=== PATIENT | male | born 1975 | race African-American/Black ===

== ENCOUNTER 2017-04-12 21:54 | Inpatient (IN) | payer MEDICARE, MEDICAID ==
[~2017-04-12] VITALS: Ht 182.9 cm; Wt 90.8 kg
[~2017-04-12 21:54] MED LIST: FOLI1 PO; RISP1 PO; THIA100T PO; WELL150T PO
[2017-04-12 22:03] VITALS: BP 135/86; PULSE 79; RESP 16; TEMP 98.2; O2SAT 99
--- NOTE | 2017-04-12 22:24 | PD ---
HPI Chief Complaint: Psychiatric Symptoms Time Seen by Provider: 22:10 Travel History International Travel<30 days: No Contact w/Intl Traveler<30days: No Traveled to known affect area: No History of Present Illness HPI 41-year-old black male presents to emergency department by EMS from [facility] for evaluation. According to EMS, the electromedical equipment repairer of the facility called 911 to have the patient evaluated. According to EMS the patient has been an inpatient there for some time. He has a history of schizophrenia. Over last day or so he has become acutely confused. Patient appears to be having visual hallucinations. He has been swatting at things that may not be there. Patient has had a history of substance abuse. There is no report of any recent trauma, recent illness, or medication changes. The patient here is reserved and only responds with one word answers. Patient keeps his eyes closed and does not assist with his care today. It is unclear whether the patient is just a very poor historian or is from altered mental status. PFSH Past Medical History Narrative Medical Schizophrenia, substance abuse, peptic ulcer disease, history of pneumonia. Bipolar Disorder: Yes Depression: Yes Diminished Hearing: Yes Genitourinary: No Musculoskeletal: No Neurologic: No Reproductive: No Respiratory: No Immunizations Current: Yes Pneumonia: Yes Schizophrenia: Yes Ulcer: Yes Past Surgical History Surgical History: No Previous Surgery Other Surgery: No Social History Alcohol Use: Yes Tobacco Use: Yes (1ppd) Substance Use: Yes ("EVERYTHING") Allergies-Medications (Allergen,Severity, Reaction): Coded Allergies: No Known Allergies (Unverified , 10/31/15) Reported Meds & Prescriptions Reported Meds & Active Scripts Active Risperdal (Risperidone) 1 Mg Tab 2 Mg PO BID 15 Days Wellbutrin-Sr (Bupropion HCl) 150 Mg Tabcr 150 Mg PO DAILY 15 Days Vitamin B1 (Thiamine HCl) 100 Mg Tab 100 Mg PO DAILY 15 Days Folate 1 Mg Tab (Folic Acid) 1 Mg Tab 1 Mg PO DAILY 15 Days Review of Systems ROS Limitations: Clinical Condition, Altered Mental Status, Poor Historian Physical Exam Narrative GENERAL: Well-nourished, well-developed patient. I see no evidence of trauma. SKIN: Warm and dry. No rashes. HEAD: Normocephalic and atraumatic. EYES: No scleral icterus. No injection or drainage. ENT: No nasal drainage noted. Mucous membranes pink. Airway patent. NECK: Supple, trachea midline. Moves head freely without obvious discomfort. No nuchal rigidity. CARDIOVASCULAR: Regular rate and rhythm without murmurs, gallops, or rubs. RESPIRATORY: Breath sounds equal bilaterally. No accessory muscle use. GASTROINTESTINAL: Abdomen soft, non-tender, nondistended. EXTREMITIES: No cyanosis or edema. BACK: Nontender without obvious deformity. No CVA tenderness. NEURO: Patient is alert and oriented to person. no sensorimotor deficits. Nonfocal. Normal speech. Data Data Last Documented VS Vital Signs Date Time Temp Pulse Resp B/P (MAP) Pulse Ox O2 Delivery O2 Flow Rate FiO2 04/12/17 22:03 98.2 79 16 135/86 (102) 99 Orders Orders Complete Blood Count With Diff (04/12/17 22:11) Comprehensive Metabolic Panel (04/12/17 22:11) C-Reactive Protein (Crp) (04/12/17 22:11) Ua Includes Microscopic (04/12/17 22:11) Ammonia (04/12/17 22:11) Thyroid Stimulating Hormone (04/12/17 22:11) Iv Access Insert/Monitor (04/12/17 22:11) Drug Screen, Random Urine (04/12/17 22:11) Alcohol (Ethanol) (04/12/17 22:11) Lactic Acid (04/12/17 22:11) Labs Laboratory Tests Test 04/12/17 22:30 White Blood Count 6.9 TH/MM3 Red Blood Count 5.43 MIL/MM3 Hemoglobin 14.5 GM/DL Hematocrit 43.4 % Mean Corpuscular Volume 80.0 FL Mean Corpuscular Hemoglobin 26.8 PG Mean Corpuscular Hemoglobin Concent 33.5 % Red Cell Distribution Width 13.8 % Platelet Count 220 TH/MM3 Mean Platelet Volume 7.9 FL Neutrophils (%) (Auto) 59.1 % Lymphocytes (%) (Auto) 25.6 % Monocytes (%) (Auto) 9.7 % Eosinophils (%) (Auto) 5.0 % Basophils (%) (Auto) 0.6 % Neutrophils # (Auto) 4.1 TH/MM3 Lymphocytes # (Auto) 1.8 TH/MM3 Monocytes # (Auto) 0.7 TH/MM3 Eosinophils # (Auto) 0.3 TH/MM3 Basophils # (Auto) 0.0 TH/MM3 CBC Comment DIFF FINAL Differential Comment Blood Urea Nitrogen 8 MG/DL Creatinine 1.15 MG/DL Random Glucose 89 MG/DL Total Protein 8.0 GM/DL Albumin 3.6 GM/DL Calcium Level 8.9 MG/DL Alkaline Phosphatase 70 U/L Aspartate Amino Transf (AST/SGOT) 25 U/L Alanine Aminotransferase (ALT/SGPT) 21 U/L Total Bilirubin 0.4 MG/DL Sodium Level 138 MEQ/L Potassium Level 3.6 MEQ/L Chloride Level 105 MEQ/L Carbon Dioxide Level 26.7 MEQ/L Anion Gap 6 MEQ/L Estimat Glomerular Filtration Rate 86 ML/MIN Lactic Acid Level 0.8 mmol/L Ammonia 23 MCMOL/L C-Reactive Protein 0.61 MG/DL Thyroid Stimulating Hormone 3rd Gen 0.606 uIU/ML Ethyl Alcohol Level LESS THAN 3 MG/DL MDM Medical Decision Making Medical Screen Exam Complete: Yes Emergency Medical Condition: Yes Medical Record Reviewed: Yes Interpretation(s) Laboratory Tests Test 04/12/17 22:30 White Blood Count 6.9 TH/MM3 Red Blood Count 5.43 MIL/MM3 Hemoglobin 14.5 GM/DL Hematocrit 43.4 % Mean Corpuscular Volume 80.0 FL Mean Corpuscular Hemoglobin 26.8 PG Mean Corpuscular Hemoglobin Concent 33.5 % Red Cell Distribution Width 13.8 % Platelet Count 220 TH/MM3 Mean Platelet Volume 7.9 FL Neutrophils (%) (Auto) 59.1 % Lymphocytes (%) (Auto) 25.6 % Monocytes (%) (Auto) 9.7 % Eosinophils (%) (Auto) 5.0 % Basophils (%) (Auto) 0.6 % Neutrophils # (Auto) 4.1 TH/MM3 Lymphocytes # (Auto) 1.8 TH/MM3 Monocytes # (Auto) 0.7 TH/MM3 Eosinophils # (Auto) 0.3 TH/MM3 Basophils # (Auto) 0.0 TH/MM3 CBC Comment DIFF FINAL Differential Comment Blood Urea Nitrogen 8 MG/DL Creatinine 1.15 MG/DL Random Glucose 89 MG/DL Total Protein 8.0 GM/DL Albumin 3.6 GM/DL Calcium Level 8.9 MG/DL Alkaline Phosphatase 70 U/L Aspartate Amino Transf (AST/SGOT) 25 U/L Alanine Aminotransferase (ALT/SGPT) 21 U/L Total Bilirubin 0.4 MG/DL Sodium Level 138 MEQ/L Potassium Level 3.6 MEQ/L Chloride Level 105 MEQ/L Carbon Dioxide Level 26.7 MEQ/L Anion Gap 6 MEQ/L Estimat Glomerular Filtration Rate 86 ML/MIN Lactic Acid Level 0.8 mmol/L Ammonia 23 MCMOL/L C-Reactive Protein 0.61 MG/DL Thyroid Stimulating Hormone 3rd Gen 0.606 uIU/ML Ethyl Alcohol Level LESS THAN 3 MG/DL Differential Diagnosis MDM: High Differential diagnoses: Schizophrenia, schizoaffective disorder, bipolar, anxiety, depression, adjustment reaction, mood disorder NOS, ODD, depressive disorder NOS, dementia, dementia with agitation, psychosis NOS, substance induced mood disorder, DMDD, Asperger syndrome, infection,electrolyte abnormality, malingering. Narrative Course Patient's placed on a monitor. IV access is obtained. Routine laboratory tests for analysis. Patient does respond but only answers in one word responses. Patient will be evaluated for possible infection versus supratentorial etiology. The patient's medical evaluation in the ER is unremarkable. I believe that this is more of a psychiatric problem as opposed to a organic process. The patient has been medically cleared and will be evaluated by the psych screener. Diagnosis Primary Impression: Medical clearance for psychiatric admission Condition: Stable Rupert Estrada Apr 12, 2017 22:24
[2017-04-12 22:51] LABS: AUTOMATED NEUTROPHIL # 4.1 TH/MM3 (1.8-7.7); BASOPHIL % 0.6 % (0.0-2.0); EOSINOPHIL # 0.3 TH/MM3 (0-0.4); HEMATOCRIT 43.4 % (39.0-51.0); HEMOGLOBIN 14.5 GM/DL (13.0-17.0); LYMPH % 25.6 % (9.0-44.0); LYMPHOCYTE # 1.8 TH/MM3 (1.0-4.8); MEAN CORPUSCULAR HEMOGLOBIN 26.8 PG (27.0-34.0); MEAN CORPUSCULAR HGB CONC 33.5 % (32.0-36.0); MEAN PLATELET VOLUME 7.9 FL (7.0-11.0); MONO % 9.7 % (0.0-8.0); MONOCYTE # 0.7 TH/MM3 (0-0.9); NEUT % 59.1 % (16.0-70.0); PLATELET COUNT 220 TH/MM3 (150-450); RED BLOOD COUNT 5.43 MIL/MM3 (4.50-5.90); RED CELL DISTRIBUTION WIDTH 13.8 % (11.6-17.2); WHITE BLOOD COUNT 6.9 TH/MM3 (4.0-11.0)
[2017-04-12 23:18] LABS: ALBUMIN 3.6 GM/DL (3.4-5.0); AST (GOT) 25 U/L (15-37); BICARBONATE 26.7 MEQ/L (21.0-32.0); BLOOD UREA NITROGEN 8 MG/DL (7-18); CALCIUM 8.9 MG/DL (8.5-10.1); CHLORIDE 105 MEQ/L (98-107); CREATININE 1.15 MG/DL (0.60-1.30); GLOMERULAR FILTRATION RATE 86 ML/MIN (>89); GLUCOSE,RANDOM 89 MG/DL (74-106); SODIUM (NA) 138 MEQ/L (136-145)
[2017-04-12 23:19] LABS: ALT (GPT) 21 U/L (12-78); C-REACTIVE PROTEIN 0.61 MG/DL (0.00-0.30)
[2017-04-12 23:29] LABS: ALKALINE PHOSPHATASE 70 U/L (45-117); TOTAL BILIRUBIN ADULT 0.4 MG/DL (0.2-1.0)
[2017-04-13] VITALS (8 sets, daily range): BP systolic 99–132; BP diastolic 57–89; PULSE 79–121; RESP 16–22; TEMP 97.3–98.8; O2SAT 95–99
[2017-04-13] MEDS ORDERED: PALI156P IM
[2017-04-13] MEDS ORDERED: BUSP10TA PO
[2017-04-13] MEDS ORDERED: BUPR100T4 PO
[2017-04-13 09:14] LABS: BILIRUBIN, URINE NEG (NEG); BLOOD, URINE NEG (NEG); GLUCOSE,URINE NEG (NEG); KETONE, URINE TRACE mg/dL (NEG); MUCUS URINE FEW /lpf (OCC); NITRITE,URINE NEG (NEG); PH, URINE 5.5 (5.0-8.5); URINE COLOR YELLOW (YELLW/STRAW); URINE LEUKOCYTE ESTERASE NEG (NEG)
[2017-04-13] MEDS ORDERED: OLANZapine 10 MG TAB PO ONE (14:15)
[2017-04-13] MEDS ORDERED: ACETAMINOPHEN 325 MG TAB PO PRN (17:00)
[2017-04-13] MEDS ORDERED: ALUMINUM/MAGNESIUM/SIMETH 30 ML CUP PO PRN (17:00)
[2017-04-13] MEDS ORDERED: MAGNESIUM HYDROXIDE SUSP 30 ML CUP PO PRN (17:00)
--- NOTE | 2017-04-13 17:15 | PD ---
History of Present Illness Chief Complaint: Psychiatric Symptoms Time Seen by Provider: 12:00 Travel History International Travel<30 Days: No Contact w/Intl Traveler<30days: No Known affected area: No Legal Status Legal Status: Involuntary History of Present Illness: History of Present Illness HPI 41-year-old black male with record history of schizoaffective disorder, schizophrenia, substance induced mood disorder, cocaine abuse, adjustment disorder, who presents to emergency department by EMS from [facility] for evaluation. According to EMS, the medical or surgical instrument maker of the facility called 911 to have the patient evaluated due to the patient becoming acutely confused, appearing to be experiencing visual hallucinations. He has been swatting at things that may not be there. Patient has had a history of substance abuse but has been at this rehabilitation facility since March 06 and is reported to be free of substance use. Upon arrival to the ED he was only responding with one word answers, kept his eyes closed, and was not participating in his care. When patient was transferred to [facility] he became agitated and he was screaming. He admitted to auditory and visual hallucinations. He then would become mute with his eyes closed and would not answer any questions. This morning the patient appeared to be sleeping . He responded to verbal stimuli but would close his eyes after short interaction. He states that he came to the hospital because he has been" experiencing some blackouts and that he feels that his brain stops functioning". Patient at some point during the interview began to make some bizarre noises with his mouth and tells me that he is having trouble with his teeth and that he believes that his teeth are taken away part of his brain. The patient then becomes mute and would not answer any other questions. Patient was medicated with Zyprexa at his request since he reported that he had not taken any medications this morning. Patient also during the morning was heard shouting very loudly the ABCs. He has otherwise remained isolative and withdrawn. Patient does not initiate any interaction with staff or other peers. He denies any suicidal or homicidal ideation Electronic medical record is reviewed. The patient has had several admissions to [facility] psychiatry Department. His last admission was in January 2016 for treatment of a brief psychotic disorder. He was also admitted in September 2015 and treated for substance induced mood disorder. Current toxicology is negative for any substance. [facility] Past Medical History Bipolar Disorder: Yes Anxiety: Yes Depression: Yes Diminished Hearing: Yes Genitourinary: No Musculoskeletal: No Neurologic: No Psychiatric: Yes ([facility] since 03[facility]06[facility]17 for drug/ alcohol rehanb ) Reproductive: No Respiratory: No Immunizations Current: Yes Pneumonia: Yes Schizophrenia: Yes Ulcer: Yes Past Surgical History Surgical History: No Previous Surgery Other Surgery: No Psychiatric History Psychiatric History Hx Psychiatric Treatment: HX OF PSYCHOSIS AND HAS BEEN ADMITTED TO [facility] SEVERAL TIMES. DIAGNOSED WITH SCHIZOAFFECTIVE DISORDER AND SCHIZOPHRENIA. OUTPATIENT TREATMENT AT [facility] History of Inpatient Treatment: Yes Guns or firearms in home: No Social History Single never . Has completed 11th grade. Most recently was that a rehabilitation facility. Patient is on disability Hx Alcohol Use: Yes (prior hx but none since 03/05/17) Hx Tobacco Use: Yes (1ppd) Hx Substance Use: Yes (cocaine and marijuana; last use 03/05/17) Substance Use Type: Alcohol, Crack, Marijuana, Amphetamines-Stimulants, Cocaine , Other Hx of Substance Use Treatment: Yes (patient has been at [facility] by the [facility], [facility], [employer], [facility]) Family Psychiatric History Unable to obtain Allergies-Medications (Allergen,Severity, Reaction): Coded Allergies: No Known Allergies (Verified Allergy, Unknown, 04/13/17) Reported Meds & Prescriptions Reported Meds & Active Scripts Active Reported Invega Sustenna Inj (Paliperidone Palmitate) 156 Mg/Ml Inj 156 Mg IM Q28D Bupropion HCl 100 Mg Tab 100 Mg PO BID Buspirone (Buspirone HCl) 10 Mg Tab 10 Mg PO TID Review of Systems ROS Limitations: Poor Historian Mental Status Examination Appearance: Appropriate Consciousness: Somnolent Orientation: x4 Motor Activity: Normal gait Speech: Slow Language: Adequate Fund of Knowledge: Poor (unable to evaluate) Attention and Concentration: Inadequate Memory: Unremarkable (unable to assess) Mood: Other (withdrawn) Affect: Blunt (blunted) Thought Process & Associations: Other (appears to be internally stimulated. Thought blocking) Thought Content: Other (appears to to be internally preoccupied) Hallucination Type: None (denies any at present) Delusion Type: None Suicidal Ideation: No Suicidal Plan: No Suicidal Intention: No Homicidal Ideation: No Homicidal Plan: No Homicidal Intention: No Insight: Poor Judgment: Poor MDM Medical Decision Making Medical Record Reviewed: Yes Assessment/Plan 41-year-old male with reported history of schizoaffective disorder, schizophrenia, substance use disorder who is brought to the emergency department by staff from his rehabilitation facility after a change in his mental status. They reported the patient was hallucinating and confused, picking at objects that weren't there. Patient intermittent episodes of yelling out very loudly, saying, followed by episodes of almost catatonic behavior with diminished verbalization. He reports that he has not been taking his medication for several days. Patient's current toxicology is negative. He may be experiencing an acute psychotic decompensation at this time due to poor medication compliance. Patient has been placed under involuntary status and inpatient psychiatric treatment is recommended for stabilization and to adjust his psychiatric medications. Orders Orders Complete Blood Count With Diff (04/12/17 22:11) Comprehensive Metabolic Panel (04/12/17 22:11) C-Reactive Protein (Crp) (04/12/17 22:11) Ua Includes Microscopic (04/12/17 22:11) Ammonia (04/12/17 22:11) Thyroid Stimulating Hormone (04/12/17 22:11) Iv Access Insert/Monitor (04/12/17 22:11) Drug Screen, Random Urine (04/12/17 22:11) Alcohol (Ethanol) (04/12/17 22:11) Lactic Acid (04/12/17 22:11) Psych Screen (04/12/17 23:42) Diet Regular Basic (04/13/17 Breakfast) Diet Regular Basic (04/13/17 Lunch) Olanzapine (Zyprexa) (04/13/17 14:15) Diet Regular Basic (04/13/17 Dinner) Admit Order (Ed Use Only) (04/13/17 ) Admit To Inpatient Psych (04/13/17 ) Code Status (04/13/17 16:46) Vital Signs (Adult) [id number] (04/13/17 16:46) Activity Oob Ad Elizabeth (04/13/17 16:46) Level Of Observation (Psych) (04/13/17 16:46) Aims-Abnormal Invol Move Scale ONCE (04/13/17 16:46) Acetaminophen (Tylenol) (04/13/17 17:00) Magnesium Hydroxide Liq (Milk Of Magnesi (04/13/17 17:00) Al-Mag Hy-Si 40-40-4 Mg/Ml Liq (Mag-Al P (04/13/17 17:00) Basic Metabolic Panel (Bmp) (04/14/17 06:00) Lipid Profile (04/14/17 06:00) Hemoglobin (Hgb) A1c (04/14/17 06:00) Electrocardiogram (04/14/17 ) Results Vital Signs Date Time Temp Pulse Resp B/P (MAP) Pulse Ox O2 Delivery O2 Flow Rate FiO2 04/13/17 10:28 97.6 84 18 103/58 (73) 96 04/13/17 06:36 97.3 90 17 115/57 (76) 95 Room Air 04/13/17 02:29 98.3 79 17 126/61 (82) 97 Room Air 04/13/17 01:10 97.9 88 18 117/77 (90) 97 Room Air 04/13/17 00:44 88 18 123/80 (94) 98 04/13/17 00:05 80 16 132/89 (103) 99 Room Air 04/12/17 22:03 98.2 79 16 135/86 (102) 99 Laboratory Tests Test 04/12/17 22:30 04/13/17 09:00 White Blood Count 6.9 Red Blood Count 5.43 Hemoglobin 14.5 Hematocrit 43.4 Mean Corpuscular Volume 80.0 Mean Corpuscular Hemoglobin 26.8 Mean Corpuscular Hemoglobin Concent 33.5 Red Cell Distribution Width 13.8 Platelet Count 220 Mean Platelet Volume 7.9 Neutrophils (%) (Auto) 59.1 Lymphocytes (%) (Auto) 25.6 Monocytes (%) (Auto) 9.7 Eosinophils (%) (Auto) 5.0 Basophils (%) (Auto) 0.6 Neutrophils # (Auto) 4.1 Lymphocytes # (Auto) 1.8 Monocytes # (Auto) 0.7 Eosinophils # (Auto) 0.3 Basophils # (Auto) 0.0 CBC Comment DIFF FINAL Differential Comment Blood Urea Nitrogen 8 Creatinine 1.15 Random Glucose 89 Total Protein 8.0 Albumin 3.6 Calcium Level 8.9 Alkaline Phosphatase 70 Aspartate Amino Transf (AST/SGOT) 25 Alanine Aminotransferase (ALT/SGPT) 21 Total Bilirubin 0.4 Sodium Level 138 Potassium Level 3.6 Chloride Level 105 Carbon Dioxide Level 26.7 Anion Gap 6 Estimat Glomerular Filtration Rate 86 Lactic Acid Level 0.8 Ammonia 23 C-Reactive Protein 0.61 Thyroid Stimulating Hormone 3rd Gen 0.606 Ethyl Alcohol Level LESS THAN 3 Urine Color YELLOW Urine Turbidity CLEAR Urine pH 5.5 Urine Specific [place] 1.017 Urine Protein NEG Urine Glucose (UA) NEG Urine Ketones TRACE Urine Occult Blood NEG Urine Nitrite NEG Urine Bilirubin NEG Urine Urobilinogen LESS THAN 2.0 Urine Leukocyte Esterase NEG Urine WBC 1 Urine Mucus FEW Urine Opiates Screen NEG Urine Barbiturates Screen NEG Urine Amphetamines Screen NEG Urine Benzodiazepines Screen NEG Urine Cocaine Screen NEG Urine Cannabinoids Screen NEG Diagnosis Primary Impression: Medical clearance for psychiatric admission Additional Impressions: Schizoaffective disorder History of substance use disorder Admitting Information Admitting Physician Requests: Admit Condition: Stable Problem Qualifiers Additional Impressions: Schizoaffective disorder Qualified Codes: F25.9 - Schizoaffective disorder, unspecified Kinsey Quijano [facility] Apr 13, 2017 17:15
[2017-04-14 06:18] VITALS: BP 105/67; PULSE 85; RESP 16; TEMP 97.9; O2SAT 97
[2017-04-14] MEDS ORDERED: INFLUENZA VIRUS VACCINE (QUADRIVALENT) 0.5 ML SYR IM ONE (10:00)
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
[2017-04-14] MEDS ORDERED: BENZTROPINE MESYLATE 1 MG TAB PO PRN (16:15)
[2017-04-14] MEDS ORDERED: BENZTROPINE MESYLATE 2 MG/2 ML VIAL IM PRN (16:15)
[2017-04-14] MEDS ORDERED: hydrOXYzine HCL 50 MG TAB PO PRN (16:15)
[2017-04-14] MEDS: busPIRone HCL 10 MG TAB PO SCH (17:10)
[2017-04-14 18:12] VITALS: BP 143/93; PULSE 81; RESP 18; TEMP 98.7; O2SAT 99
[2017-04-14] MEDS: LITHIUM CARBONATE 300 MG CAP PO SCH (21:44)
[2017-04-14] MEDS: diphenhydrAMINE HCL 50 MG CAP PO PRN (21:44)
[2017-04-15 05:59] VITALS: BP 95/56; PULSE 72; RESP 16; TEMP 98.3; O2SAT 99
[2017-04-15] MEDS: LITHIUM CARBONATE 300 MG CAP PO SCH ×2 (09:00→22:09)
[2017-04-15] MEDS: busPIRone HCL 10 MG TAB PO SCH ×3 (09:01→17:18)
[2017-04-15 10:18] LABS: BICARBONATE 27.4 MEQ/L (21.0-32.0); BLOOD UREA NITROGEN 10 MG/DL (7-18); CALCIUM 8.5 MG/DL (8.5-10.1); CHLORIDE 104 MEQ/L (98-107); CREATININE 1.17 MG/DL (0.60-1.30); GLOMERULAR FILTRATION RATE 84 ML/MIN (>89); GLUCOSE,RANDOM 93 MG/DL (74-106); SODIUM (NA) 139 MEQ/L (136-145)
[2017-04-15 10:20] LABS: CHOLESTEROL 172 MG/DL (120-200); TRIGLYCERIDES 60 MG/DL (42-150)
[2017-04-15 10:22] LABS: CHOLESTEROL/ HDL RATIO 2.72 RATIO; HDL CHOLESTEROL 63.1 MG/DL (40.0-60.0); LDL CHOLESTEROL 97 MG/DL (0-99)
--- NOTE | 2017-04-15 12:41 | EKG ---
Date Performed: 04/14/2017 Time Performed: 10:31:50 PTAGE: 41 years EKG: Sinus rhythm Compared to prior tracing no significant change NORMAL ECG PREVIOUS TRACING : 10/13/2015 21.07 DOCTOR: Kian Mcmillan Interpretating Date/Time 04/15/2017 12:40:10
[2017-04-15 12:54] LABS: HEMOGLOBIN A1C 5.7 % (4.3-6.0)
--- NOTE | 2017-04-15 14:56 | HHI.PYPN ---
Subjective Chief Complaint: Psychosis Remarks P seen and discussed with staff. He was agitated and bizarre last night. Today he reported depression to RN but denies SI/HI. He c/o of AH of God and the devil. Appetite is poor. Mental Status Examination Appearance: Appropriate Consciousness: Alert Orientation: x4 Motor Activity: Normal gait, Other (no motor abnormalities noted) Speech: Unremarkable Language: Adequate Fund of Knowledge: Adequate Attention and Concentration: Adequate Memory: Unremarkable Mood: Other (depressed) Affect: Appropriate, Flat Thought Process & Associations: Intact, Logical, Goal directed, Linear Thought Content: Hallucinations Hallucination Type: Auditory Delusion Type: None Suicidal Ideation: No Suicidal Plan: No Suicidal Intention: No Homicidal Ideation: No Homicidal Plan: No Homicidal Intention: No Insight: Fair Judgment: Impulsive (fair) Results Labs Test 04/15/17 08:50 Blood Urea Nitrogen 10 MG/DL Creatinine 1.17 MG/DL Random Glucose 93 MG/DL Calcium Level 8.5 MG/DL Sodium Level 139 MEQ/L Potassium Level 3.7 MEQ/L Chloride Level 104 MEQ/L Carbon Dioxide Level 27.4 MEQ/L Anion Gap 8 MEQ/L Estimat Glomerular Filtration Rate 84 ML/MIN Hemoglobin A1c 5.7 % Triglycerides Level 60 MG/DL Cholesterol Level 172 MG/DL LDL Cholesterol 97 MG/DL HDL Cholesterol 63.1 MG/DL Cholesterol/HDL Ratio 2.72 RATIO Vitals/IOs Vital Signs Date Time Temp Pulse Resp B/P (MAP) Pulse Ox O2 Delivery O2 Flow Rate FiO2 04/15/17 05:59 98.3 72 16 95/56 (69) 99 04/13/17 17:20 Room Air Assessment & Plan Problem List: (1) Other psychotic disorder not due to a substance or known physiological condition ICD Codes: F28 - Other psychotic disorder not due to a substance or known physiological condition Assessment & Plan Continue current tx plan Estimated LOS: days Justification for Cont. Inpt. impairments in reality testing Request HC Surrog/Guard Advoc?: Makeda Dodson MD Apr 15, 2017 14:56
[2017-04-15 16:52] VITALS: BP 131/79; PULSE 95; RESP 18; TEMP 98.1; O2SAT 99
[2017-04-15] MEDS: diphenhydrAMINE HCL 50 MG CAP PO PRN (22:09)
[2017-04-16 05:53] VITALS: BP 132/64; PULSE 74; RESP 18; TEMP 98; O2SAT 96
[2017-04-16] MEDS: busPIRone HCL 10 MG TAB PO SCH ×3 (09:38→17:46)
[2017-04-16] MEDS: LITHIUM CARBONATE 300 MG CAP PO SCH ×2 (09:38→20:54)
--- NOTE | 2017-04-16 11:33 | HHI.PYPN ---
Subjective Chief Complaint: Psychosis Remarks Patient seen and examined with nurse. Chart reviewed. Case discussed with nursing staff. On my examination today, the patient appears somewhat psychomotor slowed. He appears somewhat anhedonic and withdrawn. Mood is "I don't know." He does endorse feeling hopeful. He denies any suicidal or homicidal ideation. Denies any side effects from medications. He complains of urinary hesitancy and also nodular lesions on his testes. No other physical complaints. Patient initially somewhat discharge focused and in fact has completed ROR but does agree to remain for hospitalist evaluation. Review of Systems Except as stated in HPI: all other systems reviewed are Neg Mental Status Examination Appearance: Appropriate Consciousness: Alert Orientation: x4 Motor Activity: Other (somewhat psychomotor slowed. No other motor abnormalities noted.) Speech: Unremarkable Language: Adequate Fund of Knowledge: Adequate Attention and Concentration: Adequate Memory: Unremarkable Mood: Other ("I don't know.") Affect: Blunt Thought Process & Associations: Intact, Logical, Goal directed, Linear Thought Content: Appropriate Hallucination Type: None Delusion Type: None Suicidal Ideation: No Suicidal Plan: No Suicidal Intention: No Homicidal Ideation: No Homicidal Plan: No Homicidal Intention: No Insight: Fair Judgment: Adequate (fair) Results Labs Labs reviewed. No new labs. Vitals/IOs Vital Signs Date Time Temp Pulse Resp B/P (MAP) Pulse Ox O2 Delivery O2 Flow Rate FiO2 04/16/17 05:53 98.0 74 18 132/64 (86) 96 04/13/17 17:20 Room Air Assessment & Plan Problem List: (1) Other psychotic disorder not due to a substance or known physiological condition ICD Codes: F28 - Other psychotic disorder not due to a substance or known physiological condition Assessment & Plan Continue lithium as ordered. Plan to check a lithium level tomorrow morning. Patient received Invega Sustenna prior to admission, still unclear if this was an initial dose or booster dose. Consulted the hospitalist for these complaints of urinary retention and testicular lesions. Continue other medications and care as ordered. Patient has agreed to rescind right of release. Justification for Cont. Inpt. Risk for decompensation in less restrictive environment. Discharge Planning Pending psychiatric stabilization. Request HC Surrog/Guard Advoc?: No Shyam Rose MD Apr 16, 2017 11:33
--- NOTE | 2017-04-16 13:57 | PD.CONS ---
HPI Service [facility] Hospitalists Consult Requested By Psychiatric services Reason for Consult Medical management Primary Care Physician Unknown Diagnoses: History of Present Illness Written by Марина Rivera, acting as scribe for Dr. Ryan Gannon on 04/16/17 at 13: 48. This is a 41yo male with a past medical history of schizophrenia, schizoaffective disorder and PUD who was brought into the emergency department by EMS from [facility] due to acute psychosis and has been admitted to the [facility] psychiatric unit. Hospitalist services have been consulted for complaints of urinary hesitancy and testicular nodules. Patient seen and examined. Patient denies any urinary complaints whatsoever. He does report bumps on his testicles. He denies any other medical complaints. Review of Systems Except as stated in HPI: all other systems reviewed are Neg Past Family Social History Allergies: Coded Allergies: No Known Allergies (Verified Allergy, Unknown, 04/13/17) Past Medical History Schizophrenia Schizoaffective disorder Hx of polysubstance abuse including hx of IVDU Peptic ulcer disease Past Surgical History Patient denies any previous surgeries Reported Medications Risperdal (Risperidone) 1 Mg Tab 2 Mg PO BID 15 Days Wellbutrin-Sr (Bupropion HCl) 150 Mg Tabcr 150 Mg PO DAILY 15 Days Vitamin B1 (Thiamine HCl) 100 Mg Tab 100 Mg PO DAILY 15 Days Folate 1 Mg Tab (Folic Acid) 1 Mg Tab 1 Mg PO DAILY 15 Days Active Ordered Medications Current Medications Medications (Trade) Dose Ordered Sig/Jemima Route Start Time Stop Time Status Last Admin (Tylenol) 650 mg Q4H PRN PO 04/13/17 17:00 04/13/17 20:48 (Milk Of Magnesia Liq) 30 ml DAILY PRN PO 04/13/17 17:00 (Mag-Al Plus Susp Liq) 30 ml Q6H PRN PO 04/13/17 17:00 (Buspar) 10 mg TID PO 04/14/17 18:00 04/16/17 09:38 ([place] Carbonate) 300 mg Q12HR PO 04/14/17 21:00 04/16/17 09:38 (Benadryl) 50 mg HS PRN PO 04/14/17 16:15 04/15/17 22:09 (Atarax) 50 mg Q6H PRN PO 04/14/17 16:15 (Cogentin) 1 mg Q12H PRN PO 04/14/17 16:15 (Cogentin Inj) 1 mg Q12H PRN IM 04/14/17 16:15 Family History Father, HTN Mother, paranoid schizophrenia Patient denies any FMHX of DM, CAD, CVA. Social History Patient reports tobacco use of 1ppd. Patient has a history of polysubstance use/abuse including crack, amphetamines, marijuana and remote history of IVDU. Patient has been in a rehab facility and has not used since mid February of this year. His UDS was negative this admission. Physical Exam Vital Signs Vital Signs Date Time Temp Pulse Resp B/P (MAP) Pulse Ox O2 Delivery O2 Flow Rate FiO2 04/16/17 05:53 98.0 74 18 132/64 (86) 96 04/15/17 16:52 98.1 95 18 131/79 (96) 99 Physical Exam GENERAL: This is a well-nourished, well-developed male patient , in no apparent distress. Awake and alert. SKIN: No rashes, ecchymoses or lesions. Cool and dry. HEAD: Atraumatic. Normocephalic. No temporal or scalp tenderness. EYES: Pupils equal round and reactive. Extraocular motions intact. No scleral icterus. No injection or drainage. ENT: Nose without bleeding or purulent drainage. Throat without erythema, tonsillar hypertrophy or exudate. Uvula midline. Airway patent. NECK: Trachea midline. No lymphadenopathy. Supple, nontender, no meningeal signs. CARDIOVASCULAR: Regular rate and rhythm without murmurs, gallops, or rubs. RESPIRATORY: Clear to auscultation. Breath sounds equal bilaterally. No wheezes , rales, or rhonchi. GASTROINTESTINAL: Abdomen soft, non-tender, nondistended. No hepato-splenomegaly , or palpable masses. No guarding. GENITOURINARY: Three 1 1/2cm nodular sebaceous cyst in the scrotal wall. MUSCULOSKELETAL: Extremities without clubbing, cyanosis, or edema. No joint tenderness, effusion, or edema noted. No calf tenderness. NEUROLOGICAL: Awake and alert. Motor and sensory grossly within normal limits. Five out of 5 muscle strength in all muscle groups. No focal neurologic findings appreciated. Normal speech. PSYCHIATRIC: Calm and pleasant. Cooperative. Result Diagram: 04/12/17 2230 04/15/17 0850 Assessment and Plan Assessment and Plan 41yo male with a past medical history of schizophrenia, schizoaffective disorder and PUD who was brought into the emergency department by EMS from [facility] due to acute psychosis and has been admitted to the [place] inpatient psychiatric unit. Hospitalist services have been consulted for complaints of urinary hesitancy and testicular nodules. Schizophrenia Schizoaffective disorder Acute psychosis - Management per psychiatric team Testicular sebaceous cyst - Doxycycline 100mg po BID x 3 days then 50mg po daily x 2 weeks - Recommend follow up with PCP as outpatient DVT prophylaxis - patient is ambulatory Thank you kindly for this consultation. Patient appears medically stable. Will sign off for now. Please reconsult if needed. Discussed Condition With This note was transcribed by scribe [Марина Rivera]. I, Dr. Stefan Gannon personally performed the history, physical exam, and medical decision making; and confirmed the accuracy of the information in the transcribed note. Authenticated by Dr. Stefan Gannon on 04/16/17 at 14:17. Марина Rivera Apr 16, 2017 13:57 Stefan Gannon MD Apr 16, 2017 14:18
[2017-04-16] MEDS ORDERED: DOXY50 PO (14:12)
[2017-04-16] MEDS ORDERED: DOXYCYCLINE HYCLATE 100 MG TAB PO SCH (14:30)
[2017-04-16 17:00] VITALS: BP 104/75; PULSE 87; RESP 18; TEMP 98.8; O2SAT 98
[2017-04-16] MEDS: diphenhydrAMINE HCL 50 MG CAP PO PRN (20:54)
[2017-04-16] MEDS: DOXYCYCLINE HYCLATE 100 MG CAP PO SCH (20:55)
[2017-04-17 06:20] LABS: CALCIUM 8.5 MG/DL (8.5-10.1); CREATININE 1.11 MG/DL (0.60-1.30)
[2017-04-17 06:47] VITALS: BP 123/75; PULSE 66; RESP 17; TEMP 98.3; O2SAT 98
[2017-04-17] MEDS: LITHIUM CARBONATE 300 MG CAP PO SCH ×2 (08:17→17:09)
[2017-04-17] MEDS: busPIRone HCL 10 MG TAB PO SCH ×3 (08:17→17:09)
[2017-04-17] MEDS: DOXYCYCLINE HYCLATE 100 MG CAP PO SCH ×2 (08:17→21:00)
--- NOTE | 2017-04-17 14:30 | HHI.PYPN ---
Subjective Chief Complaint: Psychosis Remarks Patient seen for follow up; chart reviewed. Discussion with nursing staff reported that the patinet noted to be with flat affect, compliant with medications, cooperative, previously reporting visual hallucinations but none recently. Patient found lying on hospital bed, with covers over his head but able to engage in interview with data analyst report writer and therapist. Patient states he is feeling "tired" and "sluggish" but that the weekend went "ok". He denies any auditory hallucinations, last time being days ago. He reports feeling "a little down" but denies any suicidal ideations. He admits to having had Invega Sustenna IM on 04/11/17 which was his second dose with his first dose having been two weeks prior that one. He states that he will continue to follow up with [facility] after discharge. Patient was notified of subtherapeutic lithium level. Review of Systems Except as stated in HPI: all other systems reviewed are Neg Mental Status Examination Appearance: Appropriate Consciousness: Alert Orientation: x4 Motor Activity: Other (somewhat psychomotor slowed. No other motor abnormalities noted.) Speech: Unremarkable Language: Adequate Fund of Knowledge: Adequate Attention and Concentration: Adequate Memory: Unremarkable Mood: Other ("sluggish...a little down") Affect: Blunt Thought Process & Associations: Intact, Logical, Goal directed, Linear Thought Content: Appropriate Hallucination Type: None Delusion Type: None Suicidal Ideation: No Suicidal Plan: No Suicidal Intention: No Homicidal Ideation: No Homicidal Plan: No Homicidal Intention: No Insight: Fair Judgment: Adequate (fair) Results Labs labs reviewed Test 04/17/17 05:27 Blood Urea Nitrogen 14 MG/DL Creatinine 1.11 MG/DL Random Glucose 77 MG/DL Calcium Level 8.5 MG/DL Sodium Level 140 MEQ/L Potassium Level 3.8 MEQ/L Chloride Level 107 MEQ/L Carbon Dioxide Level 27.0 MEQ/L Anion Gap 6 MEQ/L Estimat Glomerular Filtration Rate 89 ML/MIN [place] Level 0.4 MEQ/L Vitals/IOs Vital Signs Date Time Temp Pulse Resp B/P (MAP) Pulse Ox O2 Delivery O2 Flow Rate FiO2 04/17/17 06:47 98.3 66 17 123/75 (91) 98 04/13/17 17:20 Room Air Intake and Output 04/17/17 04/17/17 04/18/17 08:00 16:00 00:00 Intake Total 240 ml Balance 240 ml Assessment & Plan Problem List: (1) Other psychotic disorder not due to a substance or known physiological condition ICD Codes: F28 - Other psychotic disorder not due to a substance or known physiological condition Assessment & Plan Patient continues to be noted to be internally preoccupied despite denying AH at this time. He is endorsing depressed mood but denying any SI. [place] level was subtherapeutic (0.4) and therefore will increase [place] to 300mg PO TID with follow up lithium level thereafter. BMP was within normal limits. Continue rest of medications and recommendations as per primary medical team. Discharge planning in progress. Justification for Cont. Inpt. At risk for further decompensation if at lower level of care Request HC Surrog/Guard Advoc?: No Paul Scott MD Apr 17, 2017 14:30
[2017-04-17 18:33] VITALS: BP 141/71; PULSE 94; RESP 17; TEMP 99.3; O2SAT 98
[2017-04-17] MEDS: diphenhydrAMINE HCL 50 MG CAP PO PRN (21:00)
[2017-04-18 05:43] VITALS: BP 125/72; PULSE 84; RESP 17; TEMP 97.7; O2SAT 97
[2017-04-18] MEDS: busPIRone HCL 10 MG TAB PO SCH ×2 (09:44→13:06)
[2017-04-18] MEDS: DOXYCYCLINE HYCLATE 100 MG CAP PO SCH (09:44)
[2017-04-18] MEDS: LITHIUM CARBONATE 300 MG CAP PO SCH ×2 (09:44→13:07)
[2017-04-18] MEDS ORDERED: LITH300C2 PO (12:12)
[2017-04-18] MEDS ORDERED: BUSP10TA PO (12:12)
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
[2017-04-20] MEDS ORDERED: DOXYCYCLINE HYCLATE 50 MG CAP PO SCH ×2 (09:00)
== END 2017-04-18 14:50 | DRG 885 ==
LOC: NEPD 21:54 → NEDA 04-13 16:50 → H260 04-13 18:46
PROVIDERS: ADMIT Student in an Organized Health Care Education/Training Program; ATTEND Student in an Organized Health Care Education/Training Program
DX: F28 Other psychotic disorder not due to a substance or known physiological condition (principal); F20.0 Paranoid schizophrenia; R39.11 Hesitancy of micturition; L72.3 Sebaceous cyst; H91.90 Unspecified hearing loss, unspecified ear; F31.9 Bipolar disorder, unspecified; Z72.0 Tobacco use; Z81.8 Family history of other mental and behavioral disorders; Z87.11 Personal history of peptic ulcer disease; Z91.5 Personal history of self-harm
CPT/HCPCS: 80048; 80053; 80061; 80178; 80307; 81001; 82140; 83036; 83605; 84443; 85025; 86140; 93005; 99285; G0481; Q0163